=== PATIENT | male | born 1965 | race Caucasian/White ===

== ENCOUNTER 2023-02-28 18:59 | Emergency (ER) | payer OTHER, SELFPAY ==
--- NOTE | ~2023-02-28 | XR_ITS ---
EXAM: XR shoulder LT min 2V DATE: 02/28/2023 19:19 HISTORY: Traumatic pain, LIMITED ROM, . COMPARISON: None available. FINDINGS: Normal mineralization. No fracture or dislocation. No lytic or blastic lesion. Mild AC amy nt and moderate glenohumeral joint degenerative change. No erosion or periosteal change. Soft tissues within normal limits. IMPRESSION: No acute osseous finding in the left shoulder. Reviewed, dictated and finalized at [facility].
[2023-02-28 19:04] VITALS: BP 188/107; PULSE 91; RESP 16; TEMP 37.2; O2SAT 96
--- NOTE | 2023-02-28 19:08 | ED.UPPEXIN ---
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 He denies other injuries. Review of Systems Review of Systems: All systems reviewed & are unremarkable except as noted in HPI and below Exam Narrative: General appearance: Well-developed, well-nourished Skin: Normal color Head: Normocephalic, nontraumatic Eyes: Clear conjunctiva ENT: Oropharynx normal, ears normal, nose normal Neck: Supple, nontender Chest and respiratory: Airway patent, no respiratory distress, no accessory muscle use Heart: Regular rate/rhythm Abdomen: Soft, nontender, no organomegaly, quiet bowel sounds Vascular: Normal peripheral pulses, normal capillary refill. Musculoskeletal: Diffuse tenderness left shoulder anteriorly, laterally and posteriorly, no deformity, limited range of motion. Patient is able to abduct left upper extremity up to 90 degree only. Neurologic: Alert and oriented ?3, [employer]NER is normal as tested, no gross motor deficit Course Vital Signs Vital signs: Vital Signs Temperature 37.2 C 02/28/23 19:04 Pulse Rate 91 02/28/23 19:04 Respiratory Rate 16 02/28/23 19:04 Blood Pressure 188/107 H 02/28/23 19:04 Pulse Oximetry 96 02/28/23 19:04 Oxygen Delivery Room Air 02/28/23 19:04 Temperature 37.2 C 02/28/23 19:04 Pulse Rate 91 02/28/23 19:04 Respiratory Rate 16 02/28/23 19:04 Blood Pressure 188/107 H 02/28/23 19:04 Pulse Oximetry 96 02/28/23 19:04 Oxygen Delivery Room Air 02/28/23 19:04 MDM - Extremity Injury (Upper) [facility] Narrative Medical decision making narrative: Rotator cuff injury is my concern. Left shoulder x-ray showed no acute abnormalities. MRI is the gold standard. Patient need to keep left shoulder active, will be discharged on anti-inflammatory and muscle relaxants to follow-up with Ortho for possible MRI and further management. Differential Diagnosis Differential diagnosis: Likely dislocation of shoulder and fracture of humerus (Shoulder sprain/strain, rotator cuff injury) Imaging Data Radiologist's impression: Impressions Shoulder X-Ray 02/28/23 19:27 IMPRESSION: No acute osseous finding in the left shoulder. Critical Care Time Critical Care Time Critical Care Time: No Discharge Plan Discharge Clinical Impression: Injury of left rotator cuff Qualifiers: Encounter type: initial encounter Qualified Code(s): S46.002A - Unspecified injury of muscle(s) and tendon(s) of the rotator cuff of left shoulder, initial encounter Patient Disposition: Home, Self-Care Condition: Stable Instructions: Antibiotic Form, Rotator Cuff Injury (ED), Rotator Cuff Injury Exercises (DC) Additional Instructions: Return if symptoms are worsening , call your [facility]ia for appointment, take Tylenol as as needed for aches and pain, continue home medications. Prescriptions: New naproxen [Naprosyn] 500 mg tablet 500 mg PO BID PRN (Reason: pain) Qty: 14 0RF cyclobenzaprine 10 mg tablet 10 mg PO TID PRN (Reason: muscle spasm) Qty: 14 0RF Follow-up/Referrals: Mir Cantrell MD [Physician] - 03/02/23 PHYSICIAN,KENO TERMINAL OPERATOR [Primary Care Provider] - Stand Alone Forms: Work/School Release IP
== END 2023-02-28 19:56 | disposition home or self-care (01) ==
LOC: ANHED 19:50
PROVIDERS: Emergency Provider Emergency Medicine
DX: S46.002A Unspecified injury of muscle(s) and tendon(s) of the rotator cuff of left shoulder, initial encounter (principal); X50.0XXA Overexertion from strenuous movement or load, initial encounter; Y99.0 Civilian activity done for income or pay
CPT/HCPCS: 73030; 99283

== ENCOUNTER 2023-09-01 14:11 | Emergency (ER) | payer OTHER, SELFPAY ==
--- NOTE | ~2023-09-01 | CT_ITS ---
EXAMINATION: CT abdomen pelvis w con DATE: 09/01/2023 15:50 INDICATION: Ventral abdominal wall hernia. Abdominal pain TECHNIQUE: Computed tomography (CT) of the abdomen and pelvis was performed with 100 CC Omnipaque 350 intravenous contrast. Automated exposure control and iterative reconstruction technique were employe d. Exam dose: 1785.66 mGy-cm total exam DLP. COMPARISON: None. FINDINGS: Mild discoid atelectasis or scarring at the middle lobe an to a lesser extent lower lobes. The lung bases are clear of infiltrate or consolidation. Heart size appears within normal range. No pericardial or pleural effusion. No hepatic, splenic, pancreatic, adrenal space-occupying mass lesion is evident. 11 mm, 12 mm and 3 cm indeterminate hypoattenuating lesions in the lower pole of the right kidney hav e attenuation in either fluid, suggesting most likely cysts. Several possible small left renal cysts are suggested, too small to definitively characterize. No ureteral calculus or hydroureteronephrosis is detected. Normal caliber of the abdominal aorta. No intraperitoneal or retroperitoneal or pelvic mass lesion or adenopathy or ascites is detected. Mild prostate enlargement and calcification. Mild diffuse thickening of the urinary bladder wall. No inflammation or fluid is noted around the bladder. No bowel obstruction, bowel wall thickening, pneumatosis or intraperitoneal free air. There is a large fat-containing protruding umbilical hernia, measuring up to 8.4 cm AP and 6.3 cm tra nsverse dimension. There is no bowel herniation. Mildly increased density of the fat in the region of the umbilical hernia suggests mild fat inflammation. Diffuse idiopathic skeletal hyperostosis of the thoracic spine. IMPRESSION: Large protruding up to 6.3 x 8.4 cm fat-containing umbilical hernia with suggestion of s ome fat inflammation; no bowel herniation Multiple bilateral hypoattenuating lesions of the kidneys, possibly cysts, but not definitively gregg cterized Reviewed, dictated and finalized at [facility]. Reviewed, dictated and finalized at location [facility]. [employer] IMPRESSION: Large protruding up to 6.3 x 8.4 cm fat-containing umbilical herni a with suggestion of some fat inflammation; no bowel herniation Multiple bilateral hypoattenuating lesions of the kidneys, possibly cysts, but not definitively characterized
[2023-09-01 14:13] VITALS: BP 216/123; PULSE 92; RESP 20; TEMP 36.5; O2SAT 95
--- NOTE | 2023-09-01 14:35 | ED.ABDPAIN ---
HPI - Abdominal Pain General Chief Complaint: Abdominal Pain Stated Complaint: Hernia Time Seen by Provider: 09/01/23 14:18 Source: patient Mode of arrival: ambulatory History of Present Illness HPI narrative: Patient is 58 years old white male drove himself to the emergency room complaining of umbilical hernia, which is getting bigger and more painful since February 2023. He denies any nausea, vomiting, fever, or chills. Related Data Home Medications Medication Instructions Recorded Confirmed tramadol 50 mg tablet 50 mg PO Q6H PRN pain 03/27/23 06/29/23 Allergies Allergy/AdvReac Type Severity Reaction Status Date / Time No Known Allergies Allergy Verified 09/01/23 15:11 Review of Systems Review of Systems: All systems reviewed & are unremarkable except as noted in HPI and below PMFSH Past Medical History Medical History Degenerative joint disease of shoulder, right Injury of left shoulder Surgical History Surgical History History of arthroplasty of right shoulder 1997 Family History Family History Unknown Diabetes mellitus Cerebrovascular accident Arthritis Social History Social History Smoking status: Former smoker Tobacco type: cigarettes Alcohol intake: never Substance use type: does not use Occupation/Education: occupation Additional occupation/education comments: [employer] Gender identity (if verbalized by the patient): Male Exam Narrative: General appearance: Well-developed, well-nourished Skin: Normal color Head: Normocephalic, nontraumatic Eyes: Clear conjunctiva ENT: Oropharynx normal, ears normal, nose normal Neck: Supple, nontender Chest and respiratory: Airway patent, no respiratory distress, no accessory muscle use Heart: Regular rate/rhythm Abdomen: Soft, nontender, no organomegaly, quiet bowel sounds, 6 cm x 6 cm umbilical hernia, soft, reducible with slight pressure. Vascular: Normal peripheral pulses, normal capillary refill. Musculoskeletal: Normal range of motion, nontender back Neurologic: Alert and oriented ?3, [employer] is normal as tested, no gross motor deficit Course Vital Signs Vital signs: Vital Signs Temperature 36.5 C 09/01/23 14:13 Pulse Rate 92 09/01/23 14:13 Respiratory Rate 20 09/01/23 14:13 Blood Pressure 216/123 H 09/01/23 14:13 Pulse Oximetry 95 09/01/23 14:13 Oxygen Delivery Room Air 09/01/23 14:13 Temperature 36.5 C 09/01/23 14:13 Pulse Rate 80 09/01/23 15:33 Respiratory Rate 19 09/01/23 15:33 Blood Pressure 156/103 H 09/01/23 15:33 Pulse Oximetry 93 09/01/23 15:33 Oxygen Delivery Nasal Cannula 09/01/23 15:22 Oxygen Flow Rate 3 09/01/23 15:22 MDM - Abdominal Pain MDM Narrative Medical decision making narrative: Patient came with umbilical hernia which gradually getting bigger. Vital signs showed blood pressure 216/123, repeated blood pressure again showed 156/103. Physical examination was remarkable for umbilical hernia, which is reducible Differential diagnosis umbilical hernia Blood workup showed no acute abnormalities, clean urine, CT abdomen and pelvis showed 6.3 by 8.4 cm fat containing umbilical hernia In the ED patient received 1 L of normal saline, 0.5 mg of Dilaudid IV subsequently patient saturation went down, oxygen 2 L nasal cannula, gradually patient's saturation is improving. Differential Diagnosis Differential diagnosis: Likely constipation, diverticulitis and other (Umbilical hernia) L
[2023-09-01] MEDS: SODIUM CHLORIDE 0.9% IV 1,000 ML 999 ML IV CONT (15:07)
[2023-09-01] MEDS: HYDROmorphone HCL INJ (*CRX) 1 MG/ML SYR 0.5 MG IV PUSH (15:08)
[2023-09-01] MEDS: ONDANSETRON INJ 4 MG/2 ML VIAL IV PUSH (15:08)
[2023-09-01 15:22] VITALS: O2SAT 79; O2SAT 90
[2023-09-01 15:25] LABS: Basophils Absolute Auto 0.1 K/mm3 (0.0-0.1); Basophils Percent Auto 0.6 % (0.2-1.2); Eosinophils Absolute Auto 0.2 K/mm3 (0-0.3); Eosinophils Percent Auto 2.2 % (0-4.4); Hematocrit 47.8 % (42.0-52.0); Hemoglobin 15.2 g/dL (14.0-18.0); Immature Granulocyte Absolute 0.04 K/mm3 (0.00-0.031); Immature Granulocyte Percent A 0.4 % (0-0.5); Lymphocytes Absolute Auto 2.07 K/mm3 (0.9-3.2); Lymphocytes Percent Auto 21.5 % (18.3-44.2); Mean Corpuscular HGB Conc 31.8 g/dl (32-36); Mean Corpuscular Hemoglobin 31.1 pg (26-34); Monocytes Absolute Auto 0.8 K/mm3 (0.1-0.6); Monocytes Percent Auto 7.9 % (2.6-8.5); Neutrophils Absolute Auto 6.5 K/mm3 (1.3-6.7); Neutrophils Percent Auto 67.4 % (45.5-73.1); Platelet Count Result 257 k/mm3 (150-375); Red Blood Count 4.88 M/mm3 (4.6-6.20); Red Cell Distribution Width 13.9 % (11.5-14.5); White Blood Count 9.6 K/mm3 (4.5-10.0)
[2023-09-01 15:33] VITALS: BP 156/103; PULSE 80; RESP 19; O2SAT 93
[2023-09-01 15:33] LABS: Alanine Aminotransferase 38 U/L (6-50); Albumin Level 4.3 g/dL (3.5-5.1); Alkaline Phosphatase 68 U/L (38-126); Anion Gap 5 mmol/L (8-16); Aspartate Amino Transferase 45 U/L (17-59); Bilirubin,Total 0.8 mg/dL (0.2-1.3); Blood Urea Nitrogen 17 mg/dL (9-20); Calcium 8.6 mg/dL (8.4-10.2); Carbon Dioxide 32 mmol/L (22-30); Chloride 104 mmol/L (98-107); Estimated CRCL calculation 123 ml/min; Estimated Glomerular Filt Rate > 60; Glucose 101 mg/dL (65-110); Lipase 68 U/L (23-300); Potassium 4.1 mmol/L (3.4-5.0); Sodium 141 mmol/L (137-145)
[2023-09-01 15:34] LABS: Lactic Acid Reflex 1.1 mmol/L (0.7-2.0)
[2023-09-01 15:46] LABS: INR 1.1; Prothrombin Time 14.4 Seconds (11.1-14.7)
[2023-09-01 15:47] LABS: Partial Thromboplastin Time 28.3 SECONDS (22.3-36.8)
[2023-09-01 15:55] LABS: Appearance Urine Clear (Clear); Bacteria Urine None Seen /hpf; Bilirubin Urine Negative (Negative); Blood Urine Negative (Negative); Color Urine Yellow (Yellow); Glucose Urine UA Negative (Negative); Ketones Urine Negative (Negative); Leukocyte Esterase Ur Negative LEU/UL (Negative); Nitrate Urine Negative (Negative); Non Pathogenic Casts 0-2; Protein Urine 1+ mg/dL (Negative); RBC Urine 0-2 /hpf (0-2); Specific Grav Ur 1.016 (1.001-1.035); Squamous Epithelial Cell Urine None seen /hpf (Few); WBC Urine 0-5 /hpf
[2023-09-01 15:59] LABS: Add Urine Microscopic? YES
== END 2023-09-01 19:01 | disposition home or self-care (01) ==
PROVIDERS: Emergency Provider Emergency Medicine
DX: K42.9 Umbilical hernia without obstruction or gangrene (principal)
CPT/HCPCS: 36415; 74177; 80053; 81001; 83605; 83690; 85025; 85610; 85730; 96361; 96374; 96375; 99284; J1170; J2405; J7030; Q9967